=== PATIENT | male | born 1940 | race Caucasian/White ===

== ENCOUNTER 2018-02-19 08:29 | Day surgery (SDC) | payer MEDICARE, OTHER ==
[2018-02-17 09:16] LABS: HEMATOCRIT 49.2 % (42.0-52.0); HEMOGLOBIN 16.2 g/dl (14.0-17.9); MEAN CORPUSCULAR HEMOGLOBIN 29.7 PG (27.0-31.0); MEAN CORPUSCULAR HGB CONC 32.8 % (33.0-36.5); MEAN CORPUSCULAR VOLUME 90.5 FL (78-98); MEAN PLATELET VOLUME 7.9 FL (7.4-10.4); PARTIAL THROMBOPLASTIN TIME 27 SECONDS (22-32); PLATELET COUNT 206 X10'3 (140-440); RED BLOOD COUNT 5.43 X10'6 (4.70-6.10); RED CELL DISTRIBUTION WIDTH 13.5 % (11.5-14.5); WHITE BLOOD COUNT 6.1 X10'3 (4.5-11.0)
[2018-02-17 09:17] LABS: BASOPHILS % (AUTO) 0.5 % (0-1); EOSINOPHILS # (AUTO) 0.1 X10'3 (0-0.9); EOSINOPHILS % (AUTO) 2.2 % (0-6); LYMPHOCYTES # (AUTO) 1.9 X10'3 (1.1-4.8); LYMPHOCYTES % (AUTO) 31.4 % (21-51); MONOCYTES # (AUTO) 0.6 X10'3 (0-0.9); MONOCYTES % (AUTO) 9.7 % (2-12); NEUTROPHILS # (AUTO) 3.5 X10'3 (1.8-7.7); NEUTROPHILS % (AUTO) 56.2 % (42-75)
[2018-02-17 09:21] LABS: ALANINE AMINOTRANSFERASE 13 U/L (12-78); ALBUMIN 3.9 G/DL (3.4-5.0); ALBUMIN/GLOBULIN RATIO 1.1 (1.1-1.5); ALKALINE PHOSPHATASE 72 IU/L (46-116); ANION GAP 9 (8-16); ASPARTATE AMINO TRANSFERASE 20 U/L (10-37); BILIRUBIN,TOTAL 0.3 MG/DL (0.1-1.0); BLOOD UREA NITROGEN 18 MG/DL (7-18); BUN/CREATININE RATIO 16.5 (5.4-32.0); CHLORIDE 103 MMOL/L (99-107); CREATININE 1.09 MG/DL (0.60-1.10); GLUCOSE 111 MG/DL (70-104); POTASSIUM 4.3 MMOL/L (3.5-5.1); SODIUM 141 MMOL/L (135-145); TOTAL CARBON DIOXIDE 28.9 MMOL/L (24-32); TOTAL PROTEIN 7.4 G/DL (6.4-8.2); eGFR 66 ML/MIN
[2018-02-19] VITALS (11 sets, daily range): BP systolic 120–154; BP diastolic 71–87
[~2018-02-19] VITALS: Ht 180.3 cm; Wt 100.0 kg
[2018-02-19] MEDS ORDERED: nitroGLYCERIN 0.4mg SUBLingual tab SL PRN (09:15)
[2018-02-19] MEDS ORDERED: normal saline 1000ml 1,000 ML IV SCH (09:15)
[2018-02-19] MEDS ORDERED: diphenhydrAMINE 25mg capsule PO PRN (09:15)
[2018-02-19] MEDS ORDERED: LORazepam 0.5 MG tablet PO PRN (09:15)
[2018-02-19] MEDS ORDERED: CARB1TAB23 PO (10:10)
[2018-02-19] MEDS ORDERED: ASPI81TA52 PO (10:10)
[2018-02-19] MEDS ORDERED: IBUP1TAB11 PO (10:10)
[2018-02-19] MEDS ORDERED: PRAM0.5T3 PO (10:10)
[2018-02-19] MEDS ORDERED: AMLO10TA13 PO (10:10)
[2018-02-19] MEDS ORDERED: ZOLP10TA5 PO (10:10)
[2018-02-19] MEDS ORDERED: GABA-532 PO (10:10)
[2018-02-19] MEDS ORDERED: midazolam 2 mg/2 ml injection ONE (11:29)
[2018-02-19] MEDS ORDERED: iohexol 350 MG/ML 50ML vial IV ONE (11:30)
[2018-02-19] MEDS ORDERED: fentaNYL/PF 50MCG/1 ML 2ML syringe ONE (11:30)
[2018-02-19] MEDS ORDERED: LIDOcaine 1% (10mg/ml)w/preservative injection 20ml MDV ONE (11:30)
[2018-02-19] MEDS ORDERED: iohexol 350MG/ML 100ml bottle IV ONE (11:30)
[2018-02-19] MEDS ORDERED: heparin 1,000 UNITS/NS 500ml 500 ML ONE (11:31)
[2018-02-19] MEDS ORDERED: HYDROcodone/acetaminophen 10/325mg tab PO PRN (12:50)
[2018-02-19] MEDS ORDERED: ondansetron/PF 4mg/2ml inj IV PRN (12:50)
[2018-02-19] MEDS ORDERED: OXAZEpam 15mg capsule PO PRN (12:50)
[2018-02-19] MEDS ORDERED: proCHLORperazine 10 MG/2 ml inj IV PRN (12:50)
[2018-02-19] MEDS ORDERED: HYDROcodone/acetaminophen 5mg/325mg tablet PO PRN (12:50)
== END 2018-02-19 18:30 | disposition home or self-care (01) ==
LOC: SSTAY O 08:29
PROVIDERS: ATTEND Internal Medicine Cardiovascular Disease
DX: I25.118 Atherosclerotic heart disease of native coronary artery with other forms of angina pectoris (principal); E11.9 Type 2 diabetes mellitus without complications; I10 Essential (primary) hypertension; E78.5 Hyperlipidemia, unspecified; G20 Parkinson's disease; M19.90 Unspecified osteoarthritis, unspecified site; Z79.84 Long term (current) use of oral hypoglycemic drugs; Z79.82 Long term (current) use of aspirin; Z79.01 Long term (current) use of anticoagulants; Z92.3 Personal history of irradiation; Z79.1 Long term (current) use of non-steroidal anti-inflammatories (NSAID); Z85.46 Personal history of malignant neoplasm of prostate; Z92.21 Personal history of antineoplastic chemotherapy; Z79.891 Long term (current) use of opiate analgesic; Z98.890 Other specified postprocedural states; Z79.899 Other long term (current) drug therapy
CPT/HCPCS: 36415; 71046; 80053; 85025; 85610; 85730; 93005; 93458; 99152; A6257; C1760; C1769; J1644; J2001; J2250; J3010; J7030; Q0163; Q9967; 99153; A4620

== ENCOUNTER 2019-03-11 10:06 | Day surgery (SDC) | payer MEDICARE, OTHER ==
[2019-03-09 09:08] LABS: BASOPHILS % (AUTO) 0.8 % (0-1); EOSINOPHILS # (AUTO) 0.2 X10'3 (0-0.9); HEMOGLOBIN 15.9 g/dl (14.0-17.9); LYMPHOCYTES # (AUTO) 1.6 X10'3 (1.1-4.8); LYMPHOCYTES % (AUTO) 31.3 % (21-51); MEAN CORPUSCULAR HEMOGLOBIN 31.2 PG (27.0-31.0); MEAN CORPUSCULAR HGB CONC 33.8 g/dL (33.0-36.5); MEAN CORPUSCULAR VOLUME 92.3 FL (78-98); MEAN PLATELET VOLUME 7.8 FL (7.4-10.4); MONOCYTES # (AUTO) 0.6 X10'3 (0-0.9); MONOCYTES % (AUTO) 11.4 % (2-12); NEUTROPHILS # (AUTO) 2.7 X10'3 (1.8-7.7); NEUTROPHILS % (AUTO) 52.5 % (42-75); PLATELET COUNT 189 X10'3 (140-440); RED BLOOD COUNT 5.09 X10'6 (4.70-6.10); RED CELL DISTRIBUTION WIDTH 13.3 % (11.5-14.5); WHITE BLOOD COUNT 5.1 X10'3 (4.5-11.0)
[2019-03-09 09:21] LABS: PARTIAL THROMBOPLASTIN TIME 26 SECONDS (22-32)
[2019-03-09 09:30] LABS: ALANINE AMINOTRANSFERASE 18 U/L (12-78); ALBUMIN/GLOBULIN RATIO 1.2 (1.1-1.5); ALKALINE PHOSPHATASE 67 IU/L (46-116); ANION GAP 9 (8-16); ASPARTATE AMINO TRANSFERASE 25 U/L (10-37); BILIRUBIN,TOTAL 0.4 MG/DL (0.1-1.0); BLOOD UREA NITROGEN 23 MG/DL (7-18); BUN/CREATININE RATIO 18.4 (5.4-32.0); CALCIUM 9.2 MG/DL (8.5-10.1); CHLORIDE 106 MMOL/L (99-107); CREATININE 1.25 MG/DL (0.60-1.10); GLUCOSE 121 MG/DL (70-104); POTASSIUM 4.3 MMOL/L (3.5-5.1); SODIUM 143 MMOL/L (135-145); TOTAL CARBON DIOXIDE 27.7 MMOL/L (24-32); TOTAL PROTEIN 7.3 G/DL (6.4-8.2); eGFR 56 ML/MIN
[~2019-03-11] VITALS: Ht 180.3 cm; Wt 101.3 kg
[2019-03-11] VITALS (12 sets, daily range): BP systolic 106–164; BP diastolic 53–88
[~2019-03-11 10:06] MED LIST: AMLO10TA13 PO; ASPI81TA52 PO; CARB1TAB23 PO; GABA-532 PO; IBUP1TAB11 PO; PRAM0.5T3 PO; ZOLP10TA5 PO
[2019-03-11] MEDS ORDERED: LORazepam 0.5 MG tablet PO PRN (10:35)
[2019-03-11] MEDS ORDERED: diphenhydrAMINE 25mg capsule PO PRN (10:35)
[2019-03-11] MEDS ORDERED: normal saline 1,000 ML IV SCH (10:35)
[2019-03-11] MEDS ORDERED: nitroGLYCERIN 0.4mg SUBLingual tab SL PRN (10:35)
[2019-03-11] MEDS ORDERED: PRAZ1CAP2 PO (10:54)
[2019-03-11] MEDS ORDERED: LOSA25TA96 PO (10:54)
[2019-03-11] MEDS ORDERED: CLON-529 PO (10:54)
[2019-03-11] MEDS ORDERED: ATOR10TA PO (10:54)
[2019-03-11] MEDS ORDERED: LIDOcaine 1% (10mg/ml)w/preservative injection 20ml MDV ONE (12:03)
[2019-03-11] MEDS ORDERED: fentaNYL/PF 50MCG/1 ML 2ML syringe ONE (12:03)
[2019-03-11] MEDS ORDERED: iohexol 350MG/ML 100ml bottle IV ONE (12:03)
[2019-03-11] MEDS ORDERED: midazolam 2 mg/2 ml injection ONE (12:03)
[2019-03-11] MEDS ORDERED: iohexol 350 MG/ML 50ML vial IV ONE (12:03)
[2019-03-11] MEDS ORDERED: hydrALAZINE 20mg/ml inj. IV ONE (12:39)
[2019-03-11] MEDS ORDERED: nitroGLYCERIN-Tridil 50MG/D5W 250 ML IV ONE (12:43)
[2019-03-11] MEDS ORDERED: proCHLORperazine 10 MG/2 ml inj IV PRN (13:30)
[2019-03-11] MEDS ORDERED: acetaminophen 325mg tablet PO PRN (13:30)
[2019-03-11] MEDS ORDERED: OXAZEpam 15mg capsule PO PRN (13:30)
[2019-03-11] MEDS ORDERED: ondansetron/PF 4mg/2ml inj IV PRN (13:30)
[2019-03-11] MEDS ORDERED: HYDROcodone/acetaminophen 5mg/325mg tablet PO PRN (13:30)
[2019-03-11] MEDS ORDERED: HYDROcodone/acetaminophen 10/325mg tab PO PRN (13:30)
== END 2019-03-11 19:30 | disposition home or self-care (01) ==
LOC: SSTAY O 10:06
PROVIDERS: ATTEND Internal Medicine Cardiovascular Disease
DX: R94.39 Abnormal result of other cardiovascular function study (principal); I25.118 Atherosclerotic heart disease of native coronary artery with other forms of angina pectoris; G20 Parkinson's disease; M47.896 Other spondylosis, lumbar region; E78.5 Hyperlipidemia, unspecified; I10 Essential (primary) hypertension; Z79.82 Long term (current) use of aspirin; Z79.899 Other long term (current) drug therapy; Z87.891 Personal history of nicotine dependence; Z79.01 Long term (current) use of anticoagulants
CPT/HCPCS: 36415; 71046; 80053; 85025; 85610; 85730; 93005; 93459; 99152; 99153; C1769; J0360; J1644; J2001; J2250; J3010; J7030; Q0163; Q9967; A4620; A6258; C1760; J3490

== ENCOUNTER 2019-04-09 05:09 | Inpatient (IN) | payer MEDICARE, OTHER ==
[2019-04-07 14:35] LABS: ABG HCO3 23.1 mmol/L (22.0-26.0); ABG OXYGEN SATURATION 94.1 % (95-98); ABG PCO2 (T) 33.8 mmHg (35.0-45.0); ABG PH (T) 7.453 (7.350-7.450); ABG PO2 (T) 66.4 mmHg (83-108); ALLEN'S TEST Positive; FCOHb 0.7 % (0.5-1.5); FMetHb 0.2 % (0.3-1.12); FO2Hb 93.3 % (94-100); TOTAL HEMOGLOBIN 16.1 G/dl (14.0-17.9)
[2019-04-07 14:41] LABS: BASOPHILS % (AUTO) 0.8 % (0-1); EOSINOPHILS # (AUTO) 0.2 X10'3 (0-0.9); EOSINOPHILS % (AUTO) 3.6 % (0-6); LYMPHOCYTES # (AUTO) 1.5 X10'3 (1.1-4.8); MEAN CORPUSCULAR HEMOGLOBIN 31.4 PG (27.0-31.0); MEAN CORPUSCULAR HGB CONC 34.5 g/dL (33.0-36.5); MEAN PLATELET VOLUME 7.7 FL (7.4-10.4); MONOCYTES # (AUTO) 0.7 X10'3 (0-0.9); MONOCYTES % (AUTO) 12.5 % (2-12); NEUTROPHILS # (AUTO) 2.8 X10'3 (1.8-7.7); NEUTROPHILS % (AUTO) 54.1 % (42-75); PRE OP HEMATOCRIT 45.9 % (42.0-52.0); PRE OP HEMOGLOBIN 15.8 g/dL (14.0-17.9); PRE OP PLATELET COUNT 192 X10'3 (140-440); RED BLOOD COUNT 5.04 X10'6 (4.70-6.10); RED CELL DISTRIBUTION WIDTH 13.4 % (11.5-14.5)
[2019-04-07 14:42] LABS: CLARITY,URINE CLEAR (Clear); COLOR,URINE YELLOW (Yellow); GLUCOSE, URINE NEGATIVE (Neg); KETONES,URINE NEGATIVE (Neg); LEUKOCYTE ESTERASE ,URINE NEGATIVE (Neg); NITRITES, URINE NEGATIVE (Neg); OCCULT BLOOD,URINE NEGATIVE (Neg); PROTEIN,URINE NEGATIVE (Neg); UROBILINOGEN,URINE 0.2 E.U/dL (0.2-1.0)
[2019-04-07 14:46] LABS: UA COLLECTION TYPE CLN CATCH MIDSTREAM
[2019-04-07 14:53] LABS: PRE OP PROTIME 10.2 SECONDS (9.0-12.0)
[2019-04-07 15:07] LABS: ALBUMIN/GLOBULIN RATIO 1.2 (1.1-1.5); ALKALINE PHOSPHATASE 70 IU/L (46-116); BLOOD UREA NITROGEN 22 MG/DL (7-18); BUN/CREATININE RATIO 21.8 (5.4-32.0); CALCIUM 9.1 MG/DL (8.5-10.1); CHLORIDE 105 MMOL/L (99-107); CREATININE 1.01 MG/DL (0.60-1.10); PRE OP ALT 25 U/L (30-65); PRE OP ANION GAP 9 (8-16); PRE OP AST 18 U/L (10-37); PRE OP BILIRUB, TOTAL 0.4 MG/DL (0.0-1.0); PRE OP GLUCOSE 98 MG/DL (70-104); PRE OP POTASSIUM 4.3 MMOL/L (3.4-5.1); PRE OP SODIUM 141 MMOL/L (135-145); TOTAL CARBON DIOXIDE 27.1 MMOL/L (24-32); TOTAL PROTEIN 7.3 G/DL (6.4-8.2); eGFR 72 ML/MIN
[2019-04-07 15:20] LABS: HEMOGLOBIN A1C 6.6 % (4.5-6.2)
[~2019-04-09] VITALS: Ht 180.3 cm; Wt 98.9 kg
[2019-04-09] VITALS (17 sets, daily range): BP systolic 114–175; BP diastolic 44–121
[~2019-04-09 05:09] MED LIST changes: -AMLO10TA13 PO; +ATOR10TA PO; +CLON-529 PO; -GABA-532 PO; -IBUP1TAB11 PO; +LOSA100T57 PO; +PRAZ1CAP2 PO; +ringers solution, lacted 1,000 ML IV SCH
[2019-04-09] MEDS ORDERED: ROPIVAcaine 0.5% (5mg/ml) 30ml vial ONE (05:21)
[2019-04-09] MEDS: insulin Lispro (HumaLOG) vial - multi-dose SQ SCH ×4 (05:30→17:39)
[2019-04-09] MEDS ORDERED: cefazolin/dext.iso 2gm/50ml 50 ML IV ONE (05:30)
[2019-04-09] MEDS ORDERED: famotidine 20mg tablet PO ONE (05:30)
[2019-04-09] MEDS ORDERED: gabapentin 300mg capsule PO ONE (05:30)
[2019-04-09] MEDS ORDERED: vancomycin inj 1,500 MG in normal saline 300ml IV soln IV ONE (05:30)
[2019-04-09] MEDS ORDERED: dextrose 50%-water 50ml dispensing syringe IV PRN ×2 (05:30→11:05)
[2019-04-09] MEDS ORDERED: metoprolol tartrate 12.5mg (1/2 tablet) PO ONE (05:30)
[2019-04-09] MEDS ORDERED: mupirocin 2% nasal ointment 1gm UD NS ONE (05:30)
[2019-04-09] MEDS ORDERED: LORazepam 2 mg/ml vial IV PRN (05:30)
[2019-04-09] MEDS: insulin regular, human 100 UNIT in normal saline 100ml IV soln 99 ML IV SCH ×2 (05:30)
[2019-04-09] MEDS ORDERED: LIDOcaine 1% (10mg/ml) 2ml vial ONE (05:56)
[2019-04-09] MEDS: clindamycin-Cleocin 900mg/D5W 50 ML IV ONE ×2 (06:12→06:47)
[2019-04-09] MEDS ORDERED: LORazepam 2 mg/ml vial ONE (06:19)
[2019-04-09] MEDS ORDERED: aminocaproic acid 250 MG/1 ML inj. ONE (06:52)
[2019-04-09] MEDS ORDERED: protamine sulf. 10mg/ml inj. IV ONE (06:52)
[2019-04-09] MEDS ORDERED: nitroPRUSSIDE 20mg/NS 100mL (0.2mg/mL) VIAL IV ONE (06:52)
[2019-04-09] MEDS ORDERED: isoflurane 100ml inhalation liquid IH ONE (06:52)
[2019-04-09] MEDS ORDERED: nitroGLYCERIN in D5W 50mg/250ml (Tridil) infusion IV ONE (06:52)
[2019-04-09] MEDS ORDERED: DOPamine/D5W 400mg/250ml bag IV ONE (06:52)
[2019-04-09] MEDS ORDERED: LIDOcaine 1%/PF 5ML 10 MG/ML VIAL ONE (06:52)
[2019-04-09] MEDS ORDERED: SUFENTANIL CITRATE 50 MCG/ML 2ml ampule IV ONE (06:59)
[2019-04-09] MEDS ORDERED: rocuronium 10mg/ml inj IV ONE (07:02)
[2019-04-09] MEDS ORDERED: propofol inj 20 ML IV ONE (07:02)
[2019-04-09] MEDS ORDERED: glycopyrrolate 0.2mg/ml inj ONE (07:35)
[2019-04-09 07:40] LABS: ABG BASE EXCESS -0.4 mmol/L (-2.0-3.0); ABG HCO3 22.8 mmol/L (22.0-26.0); ABG OXYGEN SATURATION 99.6 % (95-98); ABG PCO2 33.3 mmHg (35.0-45.0); ABG PH 7.453 (7.350-7.450); ABG PO2 351.4 mmHg (60.0-100.0); CL (ABG) 104 mmol/L (99-107); FCOHb 0.5 % (0.5-1.5); FMetHb 0.4 % (0.3-1.12); FO2Hb 98.7 % (94-100); GLUCOSE (ABG) 98 mg/dl (70-104); IONIZED CA (ABG) 1.15 mmol/L (1.03-1.32); K (ABG) 4.1 mmol/L (3.3-5.1); NA (ABG) 137 mmol/L (135-145); TOTAL HEMOGLOBIN 14.2 G/dl (14.0-17.9)
[2019-04-09] MEDS ORDERED: albumin (human) 25% 100 ML IV solution IV ONE (08:00)
[2019-04-09] MEDS ORDERED: calcium chloride 100 MG/1 ML inj IV ONE (08:00)
[2019-04-09] MEDS ORDERED: heparin 10,000 units/1 ML INJ ONE (08:00)
[2019-04-09] MEDS ORDERED: magnesium sulf 1 GM/2 ML ONE (08:00)
[2019-04-09] MEDS ORDERED: phenylephrine 10mg/ml inj. ONE (08:00)
[2019-04-09] MEDS ORDERED: potassium acetate 2 mEq/1ml inj. IV ONE (08:00)
[2019-04-09] MEDS ORDERED: sodium bicarbonate (8.4%) 1 mEq/ml syringe ONE (08:00)
[2019-04-09] MEDS ORDERED: methylPREDNISolone sod. succ. 500mg inj ONE (08:00)
[2019-04-09] MEDS ORDERED: LIDOcaine 2% (20 mg/ml) 5ml cardiac syringe ONE (08:00)
[2019-04-09] MEDS ORDERED: aminophylline 250mg/10ml inj. IV ONE (08:00)
[2019-04-09 08:15] LABS: ACT @ 1.70 U 289 SEC (193-297); ACT @ 2.84 U 406 SEC (260-420); BASELINE ACT 142 SEC (101-148)
[2019-04-09] MEDS ORDERED: pancuronium br 1mg/ml inj IV ONE (08:19)
[2019-04-09 08:45] LABS: ABG HCO3 21.2 mmol/L (22.0-26.0); ABG OXYGEN SATURATION 98.4 % (95-98); ABG PCO2 35.1 mmHg (35.0-45.0); ABG PH 7.398 (7.350-7.450); CL (ABG) 104 mmol/L (99-107); FCOHb 0.7 % (0.5-1.5); FMetHb 0.3 % (0.3-1.12); FO2Hb 97.4 % (94-100); GLUCOSE (ABG) 112 mg/dl (70-104); IONIZED CA (ABG) 1.15 mmol/L (1.03-1.32); K (ABG) 4.3 mmol/L (3.3-5.1); NA (ABG) 135 mmol/L (135-145); TOTAL HEMOGLOBIN 14.2 G/dl (14.0-17.9)
[2019-04-09 09:05] LABS: ABG BASE EXCESS -0.6 mmol/L (-2.0-3.0); ABG HCO3 22.9 mmol/L (22.0-26.0); ABG OXYGEN SATURATION 99.3 % (95-98); ABG PCO2 33.5 mmHg (35.0-45.0); ABG PH 7.452 (7.350-7.450); ABG PO2 450.4 mmHg (60.0-100.0); CL (ABG) 102 mmol/L (99-107); FCOHb 0.3 % (0.5-1.5); FMetHb 0.4 % (0.3-1.12); FO2Hb 98.6 % (94-100); GLUCOSE (ABG) 115 mg/dl (70-104); IONIZED CA (ABG) 1.02 mmol/L (1.03-1.32); K (ABG) 5.2 mmol/L (3.3-5.1); NA (ABG) 132 mmol/L (135-145); TOTAL HEMOGLOBIN 10.9 G/dl (14.0-17.9)
[2019-04-09 09:05] LABS: ABG BASE EXCESS VENOUS -0.4 mmol/L; ABG HCO3 VENOUS 23.8 mmol/L; ABG PCO2 VENOUS 37.6 mmHg; ABG PO2 VENOUS 50.8 mmHg; CL (ABG) 101 mmol/L (99-107); FCOHb VENOUS 0.1 %; FHHb VENOUS 12.3 %; FMetHb VENOUS 0.4 %; FO2Hb VENOUS 87.2 %; GLUCOSE (ABG) 116 mg/dl (70-104); IONIZED CA (ABG) 1.02 mmol/L (1.03-1.32); K (ABG) 5.3 mmol/L (3.3-5.1); NA (ABG) 132 mmol/L (135-145)
[2019-04-09 09:31] LABS: ABG BASE EXCESS -1.2 mmol/L (-2.0-3.0); ABG HCO3 23.3 mmol/L (22.0-26.0); ABG OXYGEN SATURATION 99.2 % (95-98); ABG PCO2 37.8 mmHg (35.0-45.0); ABG PH 7.407 (7.350-7.450); ABG PO2 347.5 mmHg (60.0-100.0); CL (ABG) 104 mmol/L (99-107); FCOHb 0.3 % (0.5-1.5); FMetHb 0.5 % (0.3-1.12); FO2Hb 98.4 % (94-100); GLUCOSE (ABG) 126 mg/dl (70-104); IONIZED CA (ABG) 1.07 mmol/L (1.03-1.32); K (ABG) 5.6 mmol/L (3.3-5.1); NA (ABG) 133 mmol/L (135-145); TOTAL HEMOGLOBIN 11.3 G/dl (14.0-17.9)
[2019-04-09] MEDS ORDERED: ipratropium/albuterol 3ml nebule IH PRN (09:40)
[2019-04-09 09:51] LABS: ABG BASE EXCESS 0.7 mmol/L (-2.0-3.0); ABG HCO3 24.9 mmol/L (22.0-26.0); ABG PCO2 38.2 mmHg (35.0-45.0); ABG PH 7.432 (7.350-7.450); CL (ABG) 102 mmol/L (99-107); FCOHb 0.3 % (0.5-1.5); FMetHb 0.4 % (0.3-1.12); FO2Hb 98.3 % (94-100); GLUCOSE (ABG) 128 mg/dl (70-104); IONIZED CA (ABG) 1.33 mmol/L (1.03-1.32); K (ABG) 5.7 mmol/L (3.3-5.1); NA (ABG) 131 mmol/L (135-145); TOTAL HEMOGLOBIN 10.9 G/dl (14.0-17.9)
[2019-04-09] MEDS ORDERED: diphenhydrAMINE 50 mg/ml inj ONE (10:25)
[2019-04-09 10:35] LABS: ABG BASE EXCESS -1.4 mmol/L (-2.0-3.0); ABG HCO3 22.4 mmol/L (22.0-26.0); ABG OXYGEN SATURATION 97.6 % (95-98); ABG PCO2 34.4 mmHg (35.0-45.0); ABG PH 7.431 (7.350-7.450); ABG PO2 105.6 mmHg (60.0-100.0); CL (ABG) 105 mmol/L (99-107); FCOHb 0.1 % (0.5-1.5); FMetHb 0.6 % (0.3-1.12); FO2Hb 96.9 % (94-100); GLUCOSE (ABG) 125 mg/dl (70-104); IONIZED CA (ABG) 1.21 mmol/L (1.03-1.32); K (ABG) 4.5 mmol/L (3.3-5.1); NA (ABG) 135 mmol/L (135-145); TOTAL HEMOGLOBIN 12.2 G/dl (14.0-17.9)
[2019-04-09] MEDS ORDERED: hydrALAZINE 20mg/ml inj. IV ONE (10:54)
[2019-04-09] MEDS ORDERED: DOPamine 400mg/D5W 250ml 250 ML IV PRN (11:01)
[2019-04-09] MEDS ORDERED: niCARDipine-NS 40mg/200ml IVPB 200 ML IV PRN (11:01)
[2019-04-09] MEDS ORDERED: nitroGLYCERIN-Tridil 50MG/D5W 250 ML IV PRN (11:01)
[2019-04-09] MEDS ORDERED: metoclopramide 5 mg/ml inj IV PRN (11:05)
[2019-04-09] MEDS ORDERED: acetaminophen 325mg tablet PO PRN ×2 (11:05)
[2019-04-09] MEDS ORDERED: magnesium hydroxide 30ml (MOM) UD suspension PO PRN (11:05)
[2019-04-09] MEDS ORDERED: sodium phosphate inj. 30 MMOL in dextrose 5%-water 250 ML IV PRN (11:05)
[2019-04-09] MEDS ORDERED: Neutra Phos packet PO PRN (11:05)
[2019-04-09] MEDS ORDERED: ondansetron/PF 4mg/2ml inj IV PRN (11:05)
[2019-04-09] MEDS ORDERED: potassium Cl 20 mEq SR tablet PO PRN (11:05)
[2019-04-09] MEDS ORDERED: magnesium 4gm in 100ml NS 100 ML IV PRN (11:05)
[2019-04-09] MEDS ORDERED: sodium phosphate inj. 15 MMOL in dextrose 5%-water 150 ML IV PRN (11:05)
[2019-04-09] MEDS ORDERED: morphine 4 MG/ML inj SYRINge IV PRN (11:05)
[2019-04-09] MEDS ORDERED: pantoprazole 40 MG vial IV ONE (11:05)
[2019-04-09] MEDS ORDERED: insulin regular, human inj. 100 UNITS in normal saline 100ml IV soln 100 ML IV SCH ×2 (11:05)
[2019-04-09] MEDS ORDERED: normal saline 250ml IV soln 250 ML IV PRN (11:05)
[2019-04-09 11:30] LABS: BASOPHILS % (AUTO) 0.3 % (0-1); EOSINOPHILS # (AUTO) 0.1 X10'3 (0-0.9); EOSINOPHILS % (AUTO) 0.9 % (0-6); HEMATOCRIT 38.9 % (42.0-52.0); HEMOGLOBIN 13.2 g/dl (14.0-17.9); LYMPHOCYTES # (AUTO) 0.7 X10'3 (1.1-4.8); LYMPHOCYTES % (AUTO) 7.3 % (21-51); MEAN CORPUSCULAR HEMOGLOBIN 31.1 PG (27.0-31.0); MEAN CORPUSCULAR HGB CONC 33.8 g/dL (33.0-36.5); MEAN CORPUSCULAR VOLUME 91.9 FL (78-98); MEAN PLATELET VOLUME 7.6 FL (7.4-10.4); MONOCYTES # (AUTO) 0.4 X10'3 (0-0.9); MONOCYTES % (AUTO) 4.7 % (2-12); NEUTROPHILS # (AUTO) 7.8 X10'3 (1.8-7.7); NEUTROPHILS % (AUTO) 86.8 % (42-75); PLATELET COUNT 135 X10'3 (140-440); RED BLOOD COUNT 4.24 X10'6 (4.70-6.10); RED CELL DISTRIBUTION WIDTH 13.1 % (11.5-14.5)
[2019-04-09 11:35] LABS: ABG BASE EXCESS -2.1 mmol/L (-2.0-3.0); ABG OXYGEN SATURATION 96.7 % (95-98); ABG PCO2 (T) 40.5 mmHg (35.0-45.0); ABG PH (T) 7.372 (7.350-7.450); ABG PO2 (T) 91.2 mmHg (83-108); FCOHb 0.2 % (0.5-1.5); FMetHb 0.3 % (0.3-1.12); FO2Hb 96.2 % (94-100); MINUTE VOLUME 8 L/min; PEEP 5 cm H2O; RESPIRATORY RATE 12 b/min; RESPIRATORY RATE (OBSERVED) 12 b/min; TIDAL VOLUME 600 mL; TOTAL HEMOGLOBIN 13.9 G/dl (14.0-17.9)
[2019-04-09 11:41] LABS: PARTIAL THROMBOPLASTIN TIME 27 SECONDS (22-32)
[2019-04-09 11:44] LABS: ALANINE AMINOTRANSFERASE 10 U/L (12-78); ALBUMIN 3.1 G/DL (3.4-5.0); ALBUMIN/GLOBULIN RATIO 1.4 (1.1-1.5); ALKALINE PHOSPHATASE 52 IU/L (46-116); ANION GAP 8 (8-16); ASPARTATE AMINO TRANSFERASE 27 U/L (10-37); BILIRUBIN,TOTAL 0.7 MG/DL (0.1-1.0); BLOOD UREA NITROGEN 17 MG/DL (7-18); BUN/CREATININE RATIO 17.5 (5.4-32.0); CALCIUM 8.6 MG/DL (8.5-10.1); CHLORIDE 107 MMOL/L (99-107); CREATININE 0.97 MG/DL (0.60-1.10); GLUCOSE 125 MG/DL (70-104); MAGNESIUM 2.4 MG/DL (1.5-2.4); PHOSPHORUS 1.7 MG/DL (2.3-4.5); POTASSIUM 4.2 MMOL/L (3.5-5.1); SODIUM 141 MMOL/L (135-145); TOTAL CARBON DIOXIDE 25.8 MMOL/L (24-32); TOTAL PROTEIN 5.3 G/DL (6.4-8.2); eGFR 75 ML/MIN
[2019-04-09] MEDS: nitroPRUSSIDE in NS 100 ML IV SCH (12:10)
[2019-04-09] MEDS: magnesium 2GM in 50ml NS 50 ML IV PRN (12:15)
[2019-04-09] MEDS: potassium Cl 20mEq/100mL bag 100 ML IV PRN ×4 (12:15→18:50)
[2019-04-09] MEDS: sodium chloride 0.45% 1,000 ML IV SCH (12:16)
[2019-04-09] MEDS: gabapentin 300mg capsule PO SCH ×2 (12:49→22:29)
[2019-04-09] MEDS: pramipexole 0.25mg tablet PO SCH ×2 (12:49→22:28)
--- NOTE | 2019-04-09 12:54 | NUR ---
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 Pt would benefit from nutrition therapy education prior to discharge once stable. Will continue to follow. Addendum: 04/09/19 at [address] Amended: Links added.
[2019-04-09] MEDS ORDERED: insulin Lispro (HumaLOG) vial - multi-dose SQ SCH (13:00)
[2019-04-09] MEDS: albumin (Human) 5% 250ml 250 ML IV PRN ×3 (13:03→15:17)
[2019-04-09] MEDS ORDERED: albumin (human) 25% 100ml IV 100 ML IV ONE (13:33)
[2019-04-09] MEDS: morphine 4 MG/ML inj SYRINge IV PRN ×3 (13:36→21:21)
--- NOTE | 2019-04-09 15:30 | NUR ---
CVP at 3 and low PA pressures; Dr. Shen at bedside, MD aware of 3x Albumin given, okay with CVP of 3 and low PA pressure. Will continue to monitor.
[2019-04-09] MEDS: ceFAZolin 1GM/D5W- ADD-VANTAGE 50 ML IV SCH (16:03)
--- NOTE | 2019-04-09 16:30 | NUR ---
Received to room 2011, accompanied by MDs and surgical crew. 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 Chest tubes to suction at 20 cm. Avelar cath to gravity drainage. Dressings are dry and intact. See assessment record. All vasoactive drugs are infusing via central line. Addendum: 04/09/19 at 1630 by Chidi Renteria RN Patient arrived to room at 1115
[2019-04-09 17:14] LABS: BASOPHILS % (AUTO) 0.1 % (0-1); EOSINOPHILS % (AUTO) 0 % (0-6); HEMATOCRIT 36.1 % (42.0-52.0); HEMOGLOBIN 12.2 g/dl (14.0-17.9); LYMPHOCYTES # (AUTO) 0.2 X10'3 (1.1-4.8); LYMPHOCYTES % (AUTO) 2.1 % (21-51); MEAN CORPUSCULAR HEMOGLOBIN 31.3 PG (27.0-31.0); MEAN CORPUSCULAR HGB CONC 33.6 g/dL (33.0-36.5); MEAN PLATELET VOLUME 7.7 FL (7.4-10.4); MONOCYTES # (AUTO) 0.6 X10'3 (0-0.9); MONOCYTES % (AUTO) 5.1 % (2-12); NEUTROPHILS # (AUTO) 10.4 X10'3 (1.8-7.7); NEUTROPHILS % (AUTO) 92.7 % (42-75); PLATELET COUNT 127 X10'3 (140-440); RED BLOOD COUNT 3.89 X10'6 (4.70-6.10); RED CELL DISTRIBUTION WIDTH 13.3 % (11.5-14.5); WHITE BLOOD COUNT 11.2 X10'3 (4.5-11.0)
[2019-04-09 17:28] LABS: ALBUMIN 3.7 G/DL (3.4-5.0); ANION GAP 12 (8-16); BLOOD UREA NITROGEN 17 MG/DL (7-18); BUN/CREATININE RATIO 13.7 (5.4-32.0); CALCIUM 8.6 MG/DL (8.5-10.1); CHLORIDE 109 MMOL/L (99-107); CREATININE 1.24 MG/DL (0.60-1.10); GLUCOSE 150 MG/DL (70-104); MAGNESIUM 2.6 MG/DL (1.5-2.4); PHOSPHORUS 3.1 MG/DL (2.3-4.5); POTASSIUM 4.4 MMOL/L (3.5-5.1); SODIUM 142 MMOL/L (135-145); TOTAL CARBON DIOXIDE 21.4 MMOL/L (24-32); eGFR 57 ML/MIN
--- NOTE | 2019-04-09 18:30 | NUR ---
Patient in room CICU 2011. I have received report from Chidi MEIER and had the opportunity to ask questions and assume patient care.
--- NOTE | 2019-04-09 18:45 | NUR ---
Pt drowsy but opens eyes spontaneously, nods head to questions, follows commands. Weaning from ventilator in progress, tolerating SPONT, sats:96% on 40% FiO2. Dr. Shen notified of patient status including current hemodynamics.
[2019-04-09 19:36] LABS: ABG HCO3 19.1 mmol/L (22.0-26.0); ABG OXYGEN SATURATION 95.2 % (95-98); ABG PCO2 (T) 33.3 mmHg (35.0-45.0); ABG PH (T) 7.378 (7.350-7.450); ABG PO2 (T) 79.3 mmHg (83-108); FMetHb 0.3 % (0.3-1.12); FO2Hb 94.9 % (94-100); MINUTE VOLUME 8 L/min; PATIENT TEMPERATURE 37.4; PEEP 5 cm H2O; RESPIRATORY RATE (OBSERVED) 13 b/min
--- NOTE | 2019-04-09 19:45 | NUR ---
Extubated pt with RT to 4LNC without incident. Patient able to maintain airway and clear secretions, weak cough. Instructed on use of cough pillow, sternal precautions. Will continue to monitor.
[2019-04-09] MEDS: vancomycin/NS 1 GM ADD-VANTAGE 250 ML IV SCH (19:51)
[2019-04-09] MEDS: carbidoba-levodopa 25-100mg tablet PO SCH (22:28)
[2019-04-09] MEDS: docusate sod 100mg capsule PO SCH (22:29)
[2019-04-09] MEDS: mupirocin 2% nasal ointment 1gm UD NS SCH (22:29)
[2019-04-10] VITALS (23 sets, daily range): BP systolic 100–148; BP diastolic 49–78
[2019-04-10] MEDS: ceFAZolin 1GM/D5W- ADD-VANTAGE 50 ML IV SCH ×3 (01:24→16:19)
[2019-04-10] MEDS: nitroPRUSSIDE in NS 100 ML IV SCH ×2 (01:43→15:16)
[2019-04-10] MEDS: morphine 4 MG/ML inj SYRINge IV PRN (02:46)
[2019-04-10 03:08] LABS: BASOPHILS % (AUTO) 0.1 % (0-1); EOSINOPHILS % (AUTO) 0 % (0-6); HEMATOCRIT 34.6 % (42.0-52.0); HEMOGLOBIN 11.5 g/dl (14.0-17.9); LYMPHOCYTES # (AUTO) 0.6 X10'3 (1.1-4.8); LYMPHOCYTES % (AUTO) 4.8 % (21-51); MEAN CORPUSCULAR HEMOGLOBIN 31.1 PG (27.0-31.0); MEAN CORPUSCULAR HGB CONC 33.3 g/dL (33.0-36.5); MEAN CORPUSCULAR VOLUME 93.3 FL (78-98); MEAN PLATELET VOLUME 8.3 FL (7.4-10.4); MONOCYTES # (AUTO) 0.8 X10'3 (0-0.9); MONOCYTES % (AUTO) 6.8 % (2-12); NEUTROPHILS # (AUTO) 11.1 X10'3 (1.8-7.7); NEUTROPHILS % (AUTO) 88.3 % (42-75); PLATELET COUNT 119 X10'3 (140-440); RED BLOOD COUNT 3.71 X10'6 (4.70-6.10); RED CELL DISTRIBUTION WIDTH 13.6 % (11.5-14.5); WHITE BLOOD COUNT 12.6 X10'3 (4.5-11.0)
[2019-04-10 03:15] LABS: PARTIAL THROMBOPLASTIN TIME 26 SECONDS (22-32)
[2019-04-10 03:22] LABS: ALANINE AMINOTRANSFERASE 12 U/L (12-78); ALBUMIN 3.4 G/DL (3.4-5.0); ALBUMIN/GLOBULIN RATIO 1.5 (1.1-1.5); ALKALINE PHOSPHATASE 46 IU/L (46-116); ANION GAP 7 (8-16); ASPARTATE AMINO TRANSFERASE 32 U/L (10-37); BILIRUBIN,TOTAL 0.5 MG/DL (0.1-1.0); BLOOD UREA NITROGEN 21 MG/DL (7-18); BUN/CREATININE RATIO 19.3 (5.4-32.0); CALCIUM 8.4 MG/DL (8.5-10.1); CHLORIDE 110 MMOL/L (99-107); CREATININE 1.09 MG/DL (0.60-1.10); GLUCOSE 134 MG/DL (70-104); MAGNESIUM 2.4 MG/DL (1.5-2.4); PHOSPHORUS 3.7 MG/DL (2.3-4.5); POTASSIUM 4.9 MMOL/L (3.5-5.1); SODIUM 141 MMOL/L (135-145); TOTAL CARBON DIOXIDE 24.5 MMOL/L (24-32); TOTAL PROTEIN 5.7 G/DL (6.4-8.2); eGFR 66 ML/MIN
[2019-04-10] MEDS: magnesium 2GM in 50ml NS 50 ML IV PRN (04:14)
--- NOTE | 2019-04-10 04:58 | NUR ---
Pt appears to be sleeping at this time. Titrating Nitro to keep BP within parameters. Pt awakens easily, tolerating ice chips. Will continue to monitor.
[2019-04-10] MEDS: insulin regular, human 100 UNIT in normal saline 100ml IV soln 99 ML IV SCH ×2 (05:30)
[2019-04-10] MEDS: HYDROcodone/acetaminophen 10/325mg tab PO PRN ×4 (05:58→19:41)
--- NOTE | 2019-04-10 06:31 | NUR ---
Problems reprioritized. Patient report given, questions answered & plan of care reviewed with Tyree MEIER.
[2019-04-10] MEDS: cloNIDine 0.1 mg tablet PO SCH ×2 (07:18→19:41)
[2019-04-10] MEDS: metoprolol tartrate 25mg tablet PO SCH ×2 (07:18→20:26)
[2019-04-10] MEDS: aspirin 325mg tablet, delayed-release (Ecotrin) PO SCH (07:18)
[2019-04-10] MEDS: atorvastatin 10mg tablet PO SCH (07:19)
[2019-04-10] MEDS: mupirocin 2% nasal ointment 1gm UD NS SCH ×2 (07:19→19:41)
[2019-04-10] MEDS: docusate sod 100mg capsule PO SCH ×2 (07:19→19:41)
[2019-04-10] MEDS: pramipexole 0.25mg tablet PO SCH ×3 (07:19→20:26)
[2019-04-10] MEDS: carbidoba-levodopa 25-100mg tablet PO SCH ×2 (07:19→19:41)
[2019-04-10] MEDS: gabapentin 300mg capsule PO SCH ×3 (07:19→20:26)
[2019-04-10] MEDS ORDERED: metoprolol tartrate 12.5mg (1/2 tablet) PO SCH (08:00)
[2019-04-10] MEDS: vancomycin/NS 1 GM ADD-VANTAGE 250 ML IV SCH ×2 (08:51→20:26)
[2019-04-10] MEDS ORDERED: DOPamine 400mg/D5W 250ml 250 ML IV PRN (09:10)
[2019-04-10] MEDS ORDERED: niCARDipine-NS 40mg/200ml IVPB 200 ML IV PRN (09:10)
[2019-04-10] MEDS ORDERED: nitroGLYCERIN-Tridil 50MG/D5W 250 ML IV PRN (09:11)
--- NOTE | 2019-04-10 12:02 | NUR ---
I have reviewed and agree with all interventions performed by [facility] Student(REBA MACIEL) Addendum: 04/10/19 at 1204 by Isidra Encarnacion RT Amended: Links added.
--- NOTE | 2019-04-10 18:23 | NUR ---
Patient in room CICU 2012. I have received report from Mahamed MEIER and had the opportunity to ask questions and assume patient care. Pt up to chair, eating dinner, states pain well controlled with oral pain medications. Sats 94% on 2LNC.
[2019-04-10] MEDS ORDERED: glucagon, human recombinant 1mg kit SUBCUT PRN (19:00)
[2019-04-10] MEDS ORDERED: dextrose ORAL solution 15 GM/59 ML bottle PO PRN ×2 (19:00)
[2019-04-10] MEDS ORDERED: dextrose 50%-water 50ml dispensing syringe IV PRN ×2 (19:00)
[2019-04-10] MEDS: insulin Lispro (HumaLOG) vial - multi-dose SQ SCH (19:06)
--- NOTE | 2019-04-10 19:45 | NUR ---
Ambulated patient 80 feet with two person stand by assist. Returned to bed without incident. Medicated with oral pain medication for pain level of 7/10 per patient statement.
[2019-04-10] MEDS: insulin glargine (Lantus) pen - multi-dose SQ SCH (21:44)
--- NOTE | 2019-04-10 22:52 | NUR ---
Patient appears to be sleeping. Denied pain when awake. Will continue to monitor.
[2019-04-11] VITALS (18 sets, daily range): BP systolic 107–177; BP diastolic 56–90
[2019-04-11] MEDS: ceFAZolin 1GM/D5W- ADD-VANTAGE 50 ML IV SCH (00:50)
--- NOTE | 2019-04-11 02:01 | NUR ---
Patient appears to be sleeping, but awakens startled, mildly anxious when awake, denies pain. Expressed concerns about the clock not telling the correct time. 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 Patient appeared to fall back to sleep quickly, will continue to monitor.
[2019-04-11 02:28] LABS: BASOPHILS % (AUTO) 0.1 % (0-1); EOSINOPHILS % (AUTO) 0 % (0-6); HEMATOCRIT 34.8 % (42.0-52.0); HEMOGLOBIN 11.7 g/dl (14.0-17.9); LYMPHOCYTES # (AUTO) 0.9 X10'3 (1.1-4.8); LYMPHOCYTES % (AUTO) 6.6 % (21-51); MEAN CORPUSCULAR HEMOGLOBIN 31.4 PG (27.0-31.0); MEAN CORPUSCULAR HGB CONC 33.5 g/dL (33.0-36.5); MEAN CORPUSCULAR VOLUME 93.6 FL (78-98); MEAN PLATELET VOLUME 8.1 FL (7.4-10.4); MONOCYTES % (AUTO) 7.7 % (2-12); NEUTROPHILS % (AUTO) 85.6 % (42-75); PLATELET COUNT 95 X10'3 (140-440); RED BLOOD COUNT 3.71 X10'6 (4.70-6.10); RED CELL DISTRIBUTION WIDTH 13.9 % (11.5-14.5); WHITE BLOOD COUNT 12.9 X10'3 (4.5-11.0)
[2019-04-11 02:42] LABS: ALBUMIN 3.2 G/DL (3.4-5.0); ANION GAP 5 (8-16); BLOOD UREA NITROGEN 26 MG/DL (7-18); CALCIUM 8.1 MG/DL (8.5-10.1); CHLORIDE 104 MMOL/L (99-107); CREATININE 1.18 MG/DL (0.60-1.10); GLUCOSE 174 MG/DL (70-104); MAGNESIUM 2.7 MG/DL (1.5-2.4); SODIUM 137 MMOL/L (135-145); TOTAL CARBON DIOXIDE 27.9 MMOL/L (24-32); eGFR 60 ML/MIN
[2019-04-11] MEDS: nitroPRUSSIDE in NS 100 ML IV SCH ×2 (04:49→18:22)
[2019-04-11] MEDS: cloNIDine 0.1 mg tablet PO SCH ×2 (06:09→21:44)
[2019-04-11] MEDS: HYDROcodone/acetaminophen 10/325mg tab PO PRN ×2 (06:09→21:42)
--- NOTE | 2019-04-11 06:21 | NUR ---
Pt hypertensive,BP:177/88. Dr. Shen notified. Orders received to restart Nitro drip and give am dose of antihypertensive meds now. Problems reprioritized. Patient report given, questions answered & plan of care reviewed with Shanika MEIER.
[2019-04-11] MEDS: metoprolol tartrate 25mg tablet PO SCH ×2 (08:00→20:00)
[2019-04-11] MEDS: atorvastatin 10mg tablet PO SCH (08:12)
[2019-04-11] MEDS: aspirin 325mg tablet, delayed-release (Ecotrin) PO SCH (08:12)
[2019-04-11] MEDS: pramipexole 0.25mg tablet PO SCH ×3 (08:12→23:44)
[2019-04-11] MEDS: carbidoba-levodopa 25-100mg tablet PO SCH ×2 (08:12→23:44)
[2019-04-11] MEDS: gabapentin 300mg capsule PO SCH (08:12)
[2019-04-11] MEDS: pantoprazole 40mg Tablet.DR PO SCH (08:12)
[2019-04-11] MEDS: mupirocin 2% nasal ointment 1gm UD NS SCH (08:13)
[2019-04-11] MEDS: docusate sod 100mg capsule PO SCH ×2 (08:13→21:43)
[2019-04-11] MEDS ORDERED: lisinopril 20mg tablet PO SCH (09:45)
[2019-04-11] MEDS: insulin Lispro (HumaLOG) vial - multi-dose SQ SCH ×3 (09:52→18:52)
[2019-04-11] MEDS ORDERED: furosemide 40mg/4ml inj IV ONE (10:10)
[2019-04-11] MEDS: sodium chloride 0.45% 1,000 ML IV SCH (11:01)
--- NOTE | 2019-04-11 18:00 | NUR ---
Patient in room MED 314. I have received report from NURIS MEIER and had the opportunity to ask questions and assume patient care.
[2019-04-11] MEDS: losartan 50mg tablet PO SCH (21:43)
[2019-04-11] MEDS: insulin glargine (Lantus) pen - multi-dose SQ SCH (21:54)
[2019-04-12 02:00] VITALS: BP 126/72
[2019-04-12 05:39] LABS: BASOPHILS % (AUTO) 0.2 % (0-1); EOSINOPHILS # (AUTO) 0.1 X10'3 (0-0.9); EOSINOPHILS % (AUTO) 1.1 % (0-6); HEMATOCRIT 35.9 % (42.0-52.0); HEMOGLOBIN 12.3 g/dl (14.0-17.9); LYMPHOCYTES # (AUTO) 1.6 X10'3 (1.1-4.8); LYMPHOCYTES % (AUTO) 15.2 % (21-51); MEAN CORPUSCULAR HEMOGLOBIN 31.9 PG (27.0-31.0); MEAN CORPUSCULAR HGB CONC 34.4 g/dL (33.0-36.5); MEAN CORPUSCULAR VOLUME 92.8 FL (78-98); MEAN PLATELET VOLUME 8.4 FL (7.4-10.4); MONOCYTES # (AUTO) 1.1 X10'3 (0-0.9); MONOCYTES % (AUTO) 11.1 % (2-12); NEUTROPHILS # (AUTO) 7.4 X10'3 (1.8-7.7); NEUTROPHILS % (AUTO) 72.4 % (42-75); PLATELET COUNT 111 X10'3 (140-440); RED BLOOD COUNT 3.87 X10'6 (4.70-6.10); RED CELL DISTRIBUTION WIDTH 13.9 % (11.5-14.5); WHITE BLOOD COUNT 10.3 X10'3 (4.5-11.0)
[2019-04-12 06:26] LABS: ALBUMIN 3.1 G/DL (3.4-5.0); ANION GAP 7 (8-16); BLOOD UREA NITROGEN 26 MG/DL (7-18); BUN/CREATININE RATIO 29.2 (5.4-32.0); CALCIUM 8.1 MG/DL (8.5-10.1); CHLORIDE 106 MMOL/L (99-107); CREATININE 0.89 MG/DL (0.60-1.10); GLUCOSE 97 MG/DL (70-104); MAGNESIUM 2.2 MG/DL (1.5-2.4); PHOSPHORUS 2.4 MG/DL (2.3-4.5); SODIUM 141 MMOL/L (135-145); TOTAL CARBON DIOXIDE 28.3 MMOL/L (24-32); eGFR 83 ML/MIN
[2019-04-12 07:00] VITALS: BP 148/77
--- NOTE | 2019-04-12 07:16 | NUR ---
Patient in room MED 314. I have received report from RENEA Cruz and had the opportunity to ask questions and assume patient care.
[2019-04-12] MEDS: nitroPRUSSIDE in NS 100 ML IV SCH (07:55)
[2019-04-12] MEDS: pramipexole 0.25mg tablet PO SCH ×3 (08:00→21:07)
[2019-04-12] MEDS: carbidoba-levodopa 25-100mg tablet PO SCH ×2 (09:08→19:36)
[2019-04-12] MEDS: cloNIDine 0.1 mg tablet PO SCH ×2 (09:09→19:36)
[2019-04-12] MEDS: metoprolol tartrate 25mg tablet PO SCH ×2 (09:10→19:36)
[2019-04-12] MEDS: aspirin 81mg tablet.DR PO SCH (09:10)
[2019-04-12] MEDS: docusate sod 100mg capsule PO SCH ×2 (09:11→19:32)
[2019-04-12] MEDS: atorvastatin 10mg tablet PO SCH (09:11)
[2019-04-12] MEDS: losartan 50mg tablet PO SCH ×2 (09:11→19:32)
[2019-04-12] MEDS: pantoprazole 40mg Tablet.DR PO SCH (09:13)
[2019-04-12] MEDS ORDERED: diphenhydrAMINE 25mg capsule PO PRN (09:55)
[2019-04-12 11:00] VITALS: BP 140/70
[2019-04-12] MEDS: magnesium 2GM in 50ml NS 50 ML IV PRN (12:56)
[2019-04-12] MEDS: insulin Lispro (HumaLOG) vial - multi-dose SQ SCH (13:23)
[2019-04-12 15:00] VITALS: BP 119/63
--- NOTE | 2019-04-12 15:30 | NUR ---
F/u: Pt sleeping unable to wake during RD visit for CABG ed; written CABG ed w/ RD contact information left at bedside. Would benefit from verbal reinforcement once stable prior to d/c. Addendum: 04/12/19 at [address] Amended: Links added.
[2019-04-12 18:00] VITALS: BP 153/73
--- NOTE | 2019-04-12 18:25 | NUR ---
Patient in room MED 314. I have received report from RENEA Gimenez and had the opportunity to ask questions and assume patient care.
--- NOTE | 2019-04-12 18:37 | NUR ---
Problems reprioritized. Patient report given, questions answered & plan of care reviewed with RENEA Franklin.
[2019-04-12] MEDS: insulin glargine (Lantus) pen - multi-dose SQ SCH (21:15)
[2019-04-12 22:00] VITALS: BP 126/68
[2019-04-13 02:00] VITALS: BP 149/68
[2019-04-13 05:13] LABS: BASOPHILS % (AUTO) 0.2 % (0-1); EOSINOPHILS # (AUTO) 0.2 X10'3 (0-0.9); EOSINOPHILS % (AUTO) 1.8 % (0-6); HEMATOCRIT 35.8 % (42.0-52.0); HEMOGLOBIN 12.3 g/dl (14.0-17.9); LYMPHOCYTES # (AUTO) 1.3 X10'3 (1.1-4.8); LYMPHOCYTES % (AUTO) 16.3 % (21-51); MEAN CORPUSCULAR HEMOGLOBIN 31.9 PG (27.0-31.0); MEAN CORPUSCULAR HGB CONC 34.4 g/dL (33.0-36.5); MEAN CORPUSCULAR VOLUME 92.9 FL (78-98); MEAN PLATELET VOLUME 8.5 FL (7.4-10.4); MONOCYTES % (AUTO) 12.1 % (2-12); NEUTROPHILS # (AUTO) 5.7 X10'3 (1.8-7.7); NEUTROPHILS % (AUTO) 69.6 % (42-75); PLATELET COUNT 119 X10'3 (140-440); RED BLOOD COUNT 3.86 X10'6 (4.70-6.10); RED CELL DISTRIBUTION WIDTH 13.3 % (11.5-14.5); WHITE BLOOD COUNT 8.2 X10'3 (4.5-11.0)
[2019-04-13 05:32] LABS: ALBUMIN 2.9 G/DL (3.4-5.0); ANION GAP 7 (8-16); BLOOD UREA NITROGEN 19 MG/DL (7-18); BUN/CREATININE RATIO 20.7 (5.4-32.0); CALCIUM 8.1 MG/DL (8.5-10.1); CHLORIDE 107 MMOL/L (99-107); CREATININE 0.92 MG/DL (0.60-1.10); GLUCOSE 98 MG/DL (70-104); MAGNESIUM 2.3 MG/DL (1.5-2.4); POTASSIUM 4.3 MMOL/L (3.5-5.1); SODIUM 140 MMOL/L (135-145); TOTAL CARBON DIOXIDE 25.6 MMOL/L (24-32); eGFR 80 ML/MIN
[2019-04-13 06:00] VITALS: BP 148/93
--- NOTE | 2019-04-13 06:25 | NUR ---
Problems reprioritized. Patient report given, questions answered & plan of care reviewed with RENEA Gimenez.
[2019-04-13] MEDS ORDERED: DOCU100C40 PO (07:18)
[2019-04-13] MEDS ORDERED: METO25TA6 PO (07:18)
[2019-04-13] MEDS ORDERED: HYDR-4353 PO (07:18)
[2019-04-13] MEDS: pramipexole 0.25mg tablet PO SCH (07:32)
[2019-04-13] MEDS: pantoprazole 40mg Tablet.DR PO SCH (07:32)
[2019-04-13] MEDS: carbidoba-levodopa 25-100mg tablet PO SCH (07:32)
[2019-04-13] MEDS: aspirin 81mg tablet.DR PO SCH (07:33)
[2019-04-13] MEDS: atorvastatin 10mg tablet PO SCH (07:33)
[2019-04-13] MEDS: docusate sod 100mg capsule PO SCH (07:33)
[2019-04-13] MEDS: losartan 50mg tablet PO SCH (07:33)
[2019-04-13] MEDS: cloNIDine 0.1 mg tablet PO SCH ×2 (07:46→08:00)
[2019-04-13] MEDS: metoprolol tartrate 25mg tablet PO SCH (07:48)
--- NOTE | 2019-04-13 07:56 | NUR ---
heart rate=58,metoprolol 25 mg po held,clonodine 0.2 mg po also held,initially scanned charted undo on emar,unable to chart non-administered
--- NOTE | 2019-04-13 10:56 | NUR ---
Pt/SO seen by KARYN just prior to d/c for verbal CABG ed reinforcement. KARYN encouraged pt/SO to contact KARYN if further questions. Addendum: 04/13/19 at [address] Amended: Links added.
--- NOTE | 2019-04-13 11:06 | NUR ---
reviewed all discharge instructions,need for f/u appts., all medications and post-op CABG teaching with pt and ,pt aware home health will contact him for f/u care SL dc'd from [facility],ney beltran,pt dc'd via w/c with all belongings
== END 2019-04-13 10:45 | disposition home health service (06) | DRG 235 ==
LOC: PAS IN 05:09 → EDSTATUS 07:30 → CICU 2S 11:19 → MED 3N 04-11 15:15
PROVIDERS: ADMIT Thoracic Surgery (Cardiothoracic Vascular Surgery); ATTEND Thoracic Surgery (Cardiothoracic Vascular Surgery)
PROC: 021209W Bypass Coronary Artery, Three Arteries from Aorta with Autologous Venous Tissue, Open Approach (ICD-10-PCS; 2019-04-09)
PROC: 06BP4ZZ Excision of Right Saphenous Vein, Percutaneous Endoscopic Approach (ICD-10-PCS; 2019-04-09)
PROC: 5A1221Z Performance of Cardiac Output, Continuous (ICD-10-PCS; 2019-04-09)
PROC: B24BZZ4 Ultrasonography of Heart with Aorta, Transesophageal (ICD-10-PCS; 2019-04-09)
PROC: B548ZZA Ultrasonography of Superior Vena Cava, Guidance (ICD-10-PCS; 2019-04-09)
PROC: 02HV33Z Insertion of Infusion Device into Superior Vena Cava, Percutaneous Approach (ICD-10-PCS; 2019-04-09)
PROC: 02HP32Z Insertion of Monitoring Device into Pulmonary Trunk, Percutaneous Approach (ICD-10-PCS; 2019-04-09)
PROC: 4A133B3 Monitoring of Arterial Pressure, Pulmonary, Percutaneous Approach (ICD-10-PCS; 2019-04-09)
PROC: 4A1239Z Monitoring of Cardiac Output, Percutaneous Approach (ICD-10-PCS; 2019-04-09)
PROC: 02100Z9 Bypass Coronary Artery, One Artery from Left Internal Mammary, Open Approach (ICD-10-PCS; principal; 2019-04-09 06:52)
DX: I25.119 Atherosclerotic heart disease of native coronary artery with unspecified angina pectoris (principal); I50.31 Acute diastolic (congestive) heart failure; E78.5 Hyperlipidemia, unspecified; F41.9 Anxiety disorder, unspecified; R00.1 Bradycardia, unspecified; I10 Essential (primary) hypertension; M47.9 Spondylosis, unspecified; M79.18 Myalgia, other site; R94.39 Abnormal result of other cardiovascular function study; Z85.46 Personal history of malignant neoplasm of prostate
CPT/HCPCS: 0232T; 93312; 93325; 36415; 36600; 71045; 71046; 80048; 80053; 81003; 82330; 82435; 82803; 82947; 82948; 83036; 83735; 84100; 84132; 84295; 85018; 85025; 85347; 85384; 85610; 85730; 86885; 86920; 87081; 93005; 93880; 93971; 94002; 94010; 94668; 94760; 97161; 97530; A4618; A6258; A6402; A6446; A6449; A7000; A7048; C1713; C1751; C9113; G0378; J0280; J0360; J0690; J1200; J1265; J1644; J1815; J1940; J2001; J2060; J2150; J2270; J2370; J2704; J2720; J2795; J2930; J3370; J3475; J3480; J3490; J7030; J7040; J7050; J7060; J7120; P9045; P9047; Q0163

== ENCOUNTER → 2020-06-08 | Outpatient (CLI) | payer MEDICARE, OTHER ==
[~2020-06-08] MED LIST changes: +DOCU100C40 PO; +HYDR-4353 PO; +METO25TA6 PO; -ringers solution, lacted 1,000 ML IV SCH
[2020-06-08 07:44] LABS: TOTAL HEMOGLOBIN 13.8 G/dl (14.0-18.0)
== END | disposition home or self-care (01) ==
LOC: RT 06:57
PROVIDERS: ATTEND Internal Medicine Cardiovascular Disease
DX: R06.02 Shortness of breath (principal)
CPT/HCPCS: 85018; 94010; 94727; 94729

== ENCOUNTER 2021-02-22 11:34 | Day surgery (SDC) | payer MEDICARE, OTHER ==
[2021-02-20 14:13] LABS: BASOPHILS # (AUTO) 0.1 X10'3 (0-0.2); BASOPHILS % (AUTO) 0.9 % (0-1); EOSINOPHILS # (AUTO) 0.1 X10'3 (0-0.9); EOSINOPHILS % (AUTO) 2.3 % (0-6); HEMATOCRIT 46.1 % (42.0-52.0); HEMOGLOBIN 15.5 g/dl (14.0-17.9); LYMPHOCYTES # (AUTO) 1.9 X10'3 (1.1-4.8); LYMPHOCYTES % (AUTO) 30.3 % (21-51); MEAN CORPUSCULAR HEMOGLOBIN 32.2 PG (27.0-31.0); MEAN CORPUSCULAR HGB CONC 33.6 g/dL (33.0-36.5); MEAN PLATELET VOLUME 7.8 FL (7.4-10.4); MONOCYTES # (AUTO) 0.7 X10'3 (0-0.9); MONOCYTES % (AUTO) 10.6 % (2-12); NEUTROPHILS # (AUTO) 3.4 X10'3 (1.8-7.7); NEUTROPHILS % (AUTO) 55.9 % (42-75); PLATELET COUNT 191 X10'3 (140-440); RED CELL DISTRIBUTION WIDTH 13.3 % (11.5-14.5); WHITE BLOOD COUNT 6.1 X10'3 (4.5-11.0)
[2021-02-20 14:25] LABS: PARTIAL THROMBOPLASTIN TIME 27 SECONDS (22-32)
[2021-02-20 14:26] LABS: ALANINE AMINOTRANSFERASE 24 U/L (12-78); ALBUMIN 3.8 G/DL (3.4-5.0); ALBUMIN/GLOBULIN RATIO 1.2 (1.1-1.5); ALKALINE PHOSPHATASE 89 IU/L (46-116); ANION GAP 11 (8-16); ASPARTATE AMINO TRANSFERASE 19 U/L (10-37); BILIRUBIN,TOTAL 0.4 MG/DL (0.1-1.0); BLOOD UREA NITROGEN 23 MG/DL (7-18); BUN/CREATININE RATIO 22.8 (5.4-32.0); CALCIUM 8.8 MG/DL (8.5-10.1); CHLORIDE 106 MMOL/L (99-107); CREATININE 1.01 MG/DL (0.60-1.10); GLUCOSE 91 MG/DL (70-104); SODIUM 144 MMOL/L (135-145); TOTAL CARBON DIOXIDE 27.4 MMOL/L (24-32); TOTAL PROTEIN 7.1 G/DL (6.4-8.2); eGFR 71 ML/MIN
[~2021-02-22] VITALS: Ht 180.3 cm; Wt 94.7 kg
[2021-02-22] VITALS (11 sets, daily range): BP systolic 103–151; BP diastolic 42–84
[~2021-02-22 11:34] MED LIST changes: +LOP25T PO; -METO25TA6 PO
[2021-02-22] MEDS ORDERED: diphenhydrAMINE 25mg capsule PO PRN (12:15)
[2021-02-22] MEDS ORDERED: LORazepam 0.5 MG tablet PO PRN (12:15)
[2021-02-22] MEDS ORDERED: nitroGLYCERIN 0.4mg SUBLingual tab SL PRN (12:15)
[2021-02-22] MEDS ORDERED: normal saline 1,000 ML IV SCH (12:15)
[2021-02-22] MEDS ORDERED: OLME1TAB18 PO (13:12)
[2021-02-22] MEDS ORDERED: ISOS5TAB3 PO (13:14)
[2021-02-22] MEDS ORDERED: fentaNYL/PF 50MCG/1 ML 2ML syringe ONE (13:15)
[2021-02-22] MEDS ORDERED: LIDOcaine 1% (10mg/ml)w/preservative injection 20ml MDV ONE (13:15)
[2021-02-22] MEDS ORDERED: GABA-530 PO (13:15)
[2021-02-22] MEDS ORDERED: midazolam 1 mg/ML 2ml injection ONE (13:15)
[2021-02-22] MEDS ORDERED: iohexol 350MG/ML 100ml bottle IV ONE (13:16)
[2021-02-22] MEDS ORDERED: iohexol 350 MG/ML 50ML vial IV ONE ×2 (13:16→14:06)
[2021-02-22] MEDS ORDERED: nitroGLYCERIN-Tridil 50MG/D5W 250 ML IV ONE (14:15)
[2021-02-22] MEDS ORDERED: hydrALAZINE 20mg/ml inj. IV ONE (14:17)
[2021-02-22] MEDS ORDERED: OXAZEpam 15mg capsule PO PRN (15:05)
[2021-02-22] MEDS ORDERED: ondansetron/PF 4mg/2ml inj IV PRN (15:05)
[2021-02-22] MEDS ORDERED: proCHLORperazine 10 MG/2 ml inj IV PRN (15:05)
[2021-02-22] MEDS ORDERED: HYDROcodone/acetaminophen 10/325mg tab PO PRN (15:05)
[2021-02-22] MEDS ORDERED: HYDROcodone/acetaminophen 5mg/325mg tablet PO PRN (15:05)
== END 2021-02-22 20:25 | disposition home or self-care (01) ==
LOC: SSTAY O 11:34
PROVIDERS: ATTEND Internal Medicine Cardiovascular Disease
DX: R94.39 Abnormal result of other cardiovascular function study (principal); I25.810 Atherosclerosis of coronary artery bypass graft(s) without angina pectoris; G20 Parkinson's disease; I10 Essential (primary) hypertension; M19.90 Unspecified osteoarthritis, unspecified site; E78.5 Hyperlipidemia, unspecified; Z86.73 Personal history of transient ischemic attack (TIA), and cerebral infarction without residual deficits; Z79.01 Long term (current) use of anticoagulants; Z88.8 Allergy status to other drugs, medicaments and biological substances; Z87.891 Personal history of nicotine dependence; Z79.899 Other long term (current) drug therapy; Z79.82 Long term (current) use of aspirin
CPT/HCPCS: 36415; 71046; 80053; 85025; 85610; 85730; 93005; 93459; 99152; 99153; C1760; C1769; J0360; J1644; J2001; J2250; J3010; J7030; Q0163; Q9967; A4620; A6258; J3490